=== PATIENT | male | born 1985 | race Caucasian/White ===

== ENCOUNTER 2019-12-24 17:17 | Emergency (ER) | payer BC, OTHER ==
--- NOTE | 2019-12-24 17:28 | ED ---
SOB HPI - General Stated Complaint: SOB - History of Present Illness Initial Comments: Patient is a 34-year-old male presents emergency room with reported shortness of breath. He states that he was coming upstairs from the basement when he had sudden onset of shortness of breath. He was leaning over his kitchen counter when his found him and called an ambulance. States that he's had chest pain and shortness of breath for the past 4 months however it has got progressiv darryn worse over the past 2-3 weeks. He was seen in emergency room for similar complaint. Workup was negative. He was told to follow-up with his primary care physician for which she did see on Tuesday. They recommended he have pulmonary function testing, stress test and echo. States that these tests are still pending to be scheduled. Denies ripping or tearing sensation to his back. No cough, fevers or chills. Denies history of DVT or PE. No lower extremity swelling or calf pain. No family history of sudden cardiac . No alleviating, precipitating or modifying factors - Related Data Home Medications Medication Instructions Recorded Confirmed Allergy Med (Unknown Otc) 1 tab PO DAILY PRN 11/03/15 11/03/15 Ascorbic Acid [Vitamin C] 1,000 mg PO DAILY 11/03/15 11/03/15 Allergies Allergy/AdvReac Type Severity Reaction Status Date / Time Penicillins Allergy Unknown Verified 12/24/19 17:28 Review of Systems ROS Statement: Those systems with pertinent positive or pertinent negative responses have been documented in the HPI. ROS Other: All systems not noted in ROS Statement are negative. Past Medical History Past Medical History: No Reported History History of Any Multi-Drug Resistant Organisms: None Reported Past Surgical History: No Surgical Hx Reported Past Psychological History: No Psychological Hx Reported Smoking Status: Current every day smoker Past Alcohol Use History: Occasional Past Drug Use History: None Reported Course Vital Signs 12/24/19 12/24/19 17:28 20:52 Temperature 97.9 F 97.7 F Pulse Rate 65 60 Respiratory 18 17 Rate Blood Pressure 125/73 121/87 O2 Sat by Pulse 98 97 Oximetry Medical Decision Making - Medical Decision Making Upon arrival patient is placed in room 20. A thorough history and physical exam is performed her patient to continuous pulse ox and cardiac monitoring. 12-lead EKG performed. Patient sent for an x-ray. Laboratory studies are unremarkable. D-dimer negative. Troponin negative. Chest x-rays performed and demonstrates no acute cardiopulmonary process. Discussed results with the patient. Vital signs remain normal at this time. No signs of respiratory distress. Chest pain currently gone. At this time patient will be discharged home. He felt his primary care physician for the tests that are currently to be scheduled. I also recommended Holter monitoring. Return to the emergency room for any new or worsening symptoms. Patient was in agreement with this. He does have an albuterol inhaler and certrizine which was given to him by his primary care physician. Continue to use as directed. Patient was discharged home in stable condition - Lab Data Result diagrams: 12/24/19 18:40 12/24/19 18:40 Lab Results 12/24/19 12/24/19 12/24/19 Range/Units 18:40 18:40 18:40 WBC 8.2 (3.8-10.6) k/uL RBC 4.86 (4.30-5.90) m/uL Hgb 15.0 (13.0-17.5) gm/dL Hct 44.5 (39.0-53.0) % MCV 91.5 (80.0-100.0) fL MCH 30.9 (25.0-35.0) pg MCHC 33.8 (31.0-37.0) g/dL RDW 12.4 (11.5-15.5) % Plt Count 223 (150-450) k/uL Neutrophils % 59 % Lymphocytes % 30 % Monocytes % 6 % Eosinophils % 2 % Basophils % 1 % Neutrophils # 4.9 (1.3-7.7) k/uL Lymphocytes # 2.5 (1.0-4.8) k/uL Monocytes # 0.5 (0-1.0) k/uL Eosinophils # 0.2 (0-0.7) k/uL Basophils # 0.1 (0-0.2) k/uL PT 10.6 (9.0-12.0) sec INR 1.0 (<1.2) APTT 25.9 (22.0-30.0) sec D-Dimer <0.17 (<0.60) mg/L FEU Sodium 140 (137-145) mmol/L Potassium 3.7 (3.5-5.1) mmol/L Chloride 106 (98-107) mmol/L Carbon Dioxide 27 (22-30) mmol/L Anion Gap 7 mmol/L BUN 11 (9-20) mg/dL Creatinine 0.88 (0.66-1.25) mg/dL Est GFR (CKD-EPI)AfAm >90 (>60 ml/min/1.73 sqM) Est GFR (CKD-EPI)NonAf >90 (>60 ml/min/1.73 sqM) Glucose 134 H (74-99) mg/dL Plasma Lactic Acid Victor Manuel (0.7-2.0) mmol/L Calcium 9.6 (8.4-10.2) mg/dL Total Bilirubin 0.4 (0.2-1.3) mg/dL AST 22 (17-59) U/L ALT 18 (4-49) U/L Alkaline Phosphatase 88 (38-126) U/L Troponin I (0.000-0.034) ng/mL Total Protein 6.2 L (6.3-8.2) g/dL Albumin 4.1 (3.5-5.0) g/dL 12/24/19 12/24/19 Range/Units 18:40 18:40 WBC (3.8-10.6) k/uL RBC (4.30-5.90) m/uL Hgb (13.0-17.5) gm/dL Hct (39.0-53.0) % MCV (80.0-100.0) fL MCH (25.0-35.0) pg MCHC (31.0-37.0) g/dL RDW (11.5-15.5) % Plt Count (150-450) k/uL Neutrophils % % Lymphocytes % % Monocytes % % Eosinophils % % Basophils % % Neutrophils # (1.3-7.7) k/uL Lymphocytes # (1.0-4.8) k/uL Monocytes # (0-1.0) k/uL Eosinophils # (0-0.7) k/uL Basophils # (0-0.2) k/uL PT (9.0-12.0) sec INR (<1.2) APTT (22.0-30.0) sec D-Dimer (<0.60) mg/L FEU Sodium (137-145) mmol/L Potassium (3.5-5.1) mmol/L Chloride (98-107) mmol/L Carbon Dioxide (22-30) mmol/L Anion Gap mmol/L BUN (9-20) mg/dL Creatinine (0.66-1.25) mg/dL Est GFR (CKD-EPI)AfAm (>60 ml/min/1.73 sqM) Est GFR (CKD-EPI)NonAf (>60 ml/min/1.73 sqM) Glucose (74-99) mg/dL Plasma Lactic Acid Victor Manuel 1.2 (0.7-2.0) mmol/L Calcium (8.4-10.2) mg/dL Total Bilirubin (0.2-1.3) mg/dL AST (17-59) U/L ALT (4-49) U/L Alkaline Phosphatase (38-126) U/L Troponin I <0.012 (0.000-0.034) ng/mL Total Protein (6.3-8.2) g/dL Albumin (3.5-5.0) g/dL - EKG Data EKG Comments: EKG demonstrates normal sinus rhythm with a ventricular rate of 62. NV interval 140. QRS 92. QTC of 387. No acute ST segment elevations or depressions. J- point elevation in inferior and lateral leads consistent with early re-pole Disposition Clinical Impression: Chest pain Disposition: HOME SELF-CARE Condition: Stable Instructions (If sedation given, give patient instructions): Chest Pain (ED) Additional Instructions: Please follow up with your primary care doctor in regards your symptoms. You need a stress test, echo and Holter monitoring. I also recommend pulmonary function testing. Return to the department for any new or worsening symptoms Is patient prescribed a controlled substance at d/c from ED?: No Referrals: Erwin Flores MD [Primary Care Provider] - 1-2 days Time of Disposition: 20:40
--- NOTE | 2019-12-24 18:35 | XR ---
EXAMINATION TYPE: XR chest 2V DATE OF EXAM: 12/24/2019 COMPARISON: 12/16/2019 HISTORY: 34 year-old male shortness of breath, difficulty breathing TECHNIQUE: PA and lateral views FINDINGS: The cardiomediastinal silhouette, aorta, and pulmonary vasculature are within normal limits. Lungs an d pleural spaces are clear. IMPRESSION: No acute cardiopulmonary process.
[2019-12-24 18:55] LABS: Basophils # (A) 0.1 k/uL (0-0.2); Basophils % (A) 1 %; Eosinophils # (A) 0.2 k/uL (0-0.7); Eosinophils % (A) 2 %; HCT 44.5 % (39.0-53.0); Lymphocytes # (A) 2.5 k/uL (1.0-4.8); Lymphocytes % (A) 30 %; MCH 30.9 pg (25.0-35.0); MCHC 33.8 g/dL (31.0-37.0); MCV 91.5 fL (80.0-100.0); Mean Platelet Volume 7.4; Monocytes # (A) 0.5 k/uL (0-1.0); Monocytes % (A) 6 %; Neutrophils # (A) 4.9 k/uL (1.3-7.7); Neutrophils % (A) 59 %; Platelet Count 223 k/uL (150-450); RBC 4.86 m/uL (4.30-5.90); RDW 12.4 % (11.5-15.5); WBC 8.2 k/uL (3.8-10.6)
[2019-12-24 19:02] LABS: Sodium 140 mmol/L (137-145)
[2019-12-24 19:03] LABS: ALT 18 U/L (4-49); AST 22 U/L (17-59); African American GFR (CKD) >90 (>60 ml/min/1.73 sqM); Albumin 4.1 g/dL (3.5-5.0); Alkaline Phosphatase 88 U/L (38-126); Anion Gap 7 mmol/L; Blood Urea Nitrogen 11 mg/dL (9-20); Calcium 9.6 mg/dL (8.4-10.2); Carbon Dioxide 27 mmol/L (22-30); Chloride 106 mmol/L (98-107); Glucose 134 mg/dL (74-99); Non-African American GFR(CKD) >90 (>60 ml/min/1.73 sqM); Potassium 3.7 mmol/L (3.5-5.1); Total Bilirubin 0.4 mg/dL (0.2-1.3); Total Protein 6.2 g/dL (6.3-8.2)
[2019-12-24 19:14] LABS: D-Dimer <0.17 mg/L FEU (<0.60); Partial Thromboplastin Time 25.9 sec (22.0-30.0); Prothrombin Time 10.6 sec (9.0-12.0)
[2019-12-24 21:07] VITALS: BP 121/87; PULSE 60; RESP 17; TEMP 97.7
== END 2019-12-24 20:53 | disposition home or self-care (01) ==
LOC: EC 17:17
DX: R07.9 Chest pain, unspecified (principal); R06.02 Shortness of breath; F17.200 Nicotine dependence, unspecified, uncomplicated; Z88.0 Allergy status to penicillin
CPT/HCPCS: 36415; 71046; 80053; 83605; 84484; 85025; 85379; 85610; 85730; 93005; 99285

== ENCOUNTER → 2020-05-16 | Outpatient (CLI) | payer BC, OTHER | END | disposition home or self-care (01) | LOC: LABWHC1 10:45 | PROVIDERS: ATTEND Nurse Practitioner Family | DX: R04.2 Hemoptysis (principal) | CPT/HCPCS: 36415; 86480 ==